=== PATIENT | female | born 2000 ===

== ENCOUNTER 2023-06-02 19:25 | Emergency (ER) | payer OTHER, SELFPAY ==
[2023-06-02 19:30] VITALS: BP 130/78; PULSE 86; RESP 16; TEMP 36.2; O2SAT 99; BMI 37.1
--- NOTE | 2023-06-02 20:06 | ED.SKABFB ---
HPI - Skin/Abscess/Foreign Bdy General Chief complaint: Skin/Abscess/Foreign Body Stated complaint: Thinks allergic Rxn to hair bleach Time Seen by Provider: 06/02/23 19:52 Source: patient Mode of arrival: Ambulatory History of Present Illness HPI narrative: Patient is a 23-year-old female who this evening bleed her hair. She states that since that time she is had redness and irritation across her forehead and along her hairline on the side of her face. She thinks that it is swollen. She was concerned that maybe she is having a reaction to the hair bleach. No other symptoms. Related Data Allergies Allergy/AdvReac Type Severity Reaction Status Date / Time No Known Drug Allergies Allergy Verified 06/02/23 19:29 Review of Systems Constitutional Constitutional: Reports system reviewed and no additional complaints, except as documented Integumentary/Breasts Skin/Breast: Reports system reviewed and no additional complaints, except as documented Allergic/Immunologic Allergic/Immunologic: Reports system reviewed and no additional complaints, except as documented Exam Initial Vital Signs Initial Vital Signs: Vital Signs Temperature 97.2 F L 06/02/23 19:30 Pulse Rate 86 06/02/23 19:30 Respiratory Rate 16 06/02/23 19:30 Blood Pressure 130/78 06/02/23 19:30 Pulse Oximetry 99 06/02/23 19:30 Oxygen Delivery Method Room Air 06/02/23 19:30 HENMT Head: normal to inspection and normocephalic Skin Other: Minimal redness across the forehead and on the temples however there is no swelling noted. No blisters noted. No pustules noted. Course Vital Signs Vital signs: Vital Signs - 8 hr 06/02/23 19:30 Temperature 97.2 F L Pulse Rate 86 Respiratory Rate 16 Blood Pressure 130/78 Pulse Oximetry 99 Oxygen Delivery Method Room Air MDM - Skin/Abscess/Foreign Bdy MDM Narrative Medical decision making narrative: Very minimal skin irritation across the forehead and along the skin on her temples however there are no vesicles. She is no other signs of a anaphylactic reaction. Recommended the patient just wash her skin potentially put some topical antibiotic ointment over the area to see that. No further workup required here in the emergency department. She was given return precautions Discharge Plan Departure Patient Disposition: Home Clinical Impression: Skin irritation Activity Restrictions/Additional Instructions: I do recommend that you wash your face with soap and water to try to get the product off of your skin. You can put on a topical antibiotic ointment such as Neosporin or bacitracin. You can purchase this [id number]. Return to the emergency department for new symptoms. Referrals: [facility] [Primary Care Provider] - Stand Alone Forms: Patient Portal/API
== END 2023-06-02 20:11 | disposition home or self-care (01) ==
PROVIDERS: Emergency Provider Emergency Medicine
DX: R23.8 Other skin changes (principal)
CPT/HCPCS: 99281; 99282